=== PATIENT | male | born 1940 | race Two or more races ===

== ENCOUNTER 2019-07-19 14:55 | Inpatient (IN) | payer BC, OTHER ==
[~2019-07-19] VITALS: Ht 175.3 cm; Wt 70.8 kg
[2019-07-19 15:39] LABS: BASOPHILS % (AUTO) 0.5 % (0.0-2.0); EOSINOPHILS # (AUTO) 0.1 K/uL (0.0-0.7); EOSINOPHILS % (AUTO) 0.6 % (0.0-7.0); HEMATOCRIT 48.3 % (31.2-41.9); HEMOGLOBIN 16.2 g/dL (10.9-14.3); LYMPHOCYTES # (AUTO) 1.7 K/uL (20.0-40.0); LYMPHOCYTES % (AUTO) 19.3 % (20.5-51.5); MEAN CORPUSCULAR HEMOGLOBIN 30.7 uug (24.7-32.8); MEAN CORPUSCULAR HGB CONC 34 g/dL (32.3-35.6); MEAN CORPUSCULAR VOLUME 91.6 fL (75.5-95.3); MONOCYTES # (AUTO) 0.7 K/uL (2.0-10.0); MONOCYTES % (AUTO) 7.8 % (0.0-11.0); NEUTROPHILS # (AUTO) 6.2 K/uL (1.8-8.9); NEUTROPHILS % (AUTO) 71.8 % (38.5-71.5); PLATELET COUNT (AUTO) 166 K/uL (179-408); RED BLOOD CELL COUNT(AUTO) 5.28 MIL/uL (3.63-4.92); WHITE BLOOD COUNT (AUTO) 8.6 K/uL (3.8-11.8)
[2019-07-19 15:47] LABS: CARBON DIOXIDE 32 mmol/L (21-32); CHLORIDE 105 mmol/L (98-107); CREATININE 1.3 mg/dL (0.6-1.3); GLUCOSE 113 mg/dL (74-106); POTASSIUM 4.9 mmol/L (3.5-5.1); UREA NITROGEN, BLOOD 30 mg/dL (7-18)
--- NOTE | 2019-07-19 15:47 | NUR ---
PATIENT WAS SEEN BY MD. AWAITING TEST RESULTS. DAUGHTER AT BEDSIDE.
[2019-07-19 15:53] LABS: ALANINE AMINOTRANSFERASE 40 U/L (14-59); ALKALINE PHOSPHATASE 54 U/L (50-136); ASPARTATE AMINOTRANSFERASE 39 U/L (15-37); BILIRUBIN,DIRECT 0.2 mg/dL (0.0-0.2); BILIRUBIN,TOTAL 0.5 mg/dL (0.2-1.0); TOTAL PROTEIN, SERUM 5.4 g/dL (6.4-8.2)
[2019-07-19 15:56] LABS: ETHANOL < 3 MG/DL (0-0)
[2019-07-19 16:17] LABS: *BILIRUBIN,URIN 2+ (NEGATIVE); *BLOOD, URINE 3+ (NEGATIVE); *COLOR,URINE AMBER (YELLOW); *KETONES,URINE 1+ (NEGATIVE); LEUKOCYTE ESTERASE ,URINE NEGATIVE (NEGATIVE); NITRITE, URINE NEGATIVE (NEGATIVE); UGLUCOSE NEGATIVE (NEGATIVE)
[2019-07-19 16:22] LABS: *CLARITY,URINE HAZY (CLEAR)
[2019-07-19 16:23] LABS: RBC,URINE 80-100 /HPF (0-3)
[2019-07-19 16:24] LABS: MUCUS,URINE MANY /LPF (0-FEW); SQUAMOUS EPITHELIAL CELL,UR FEW /HPF (NONE SEEN)
[2019-07-19 16:27] LABS: *AMPHETAMINE, URINE NEGATIVE (NEGATIVE); *BARBITURATE, URINE NEGATIVE (NEGATIVE); *CANNABINOID, URINE NEGATIVE (NEGATIVE); *COCCAINE, URINE NEGATIVE (NEGATIVE); *OPIATE, URINE NEGATIVE (NEGATIVE); *PHENCYCLIDINE SCREEN,URINE NEGATIVE (NEGATIVE)
[2019-07-19] MEDS ORDERED: IV NORMAL SALINE 1000 ML BAG IV ONE (16:45)
--- NOTE | 2019-07-19 17:23 | NUR ---
PATIENT DRANK SOME JUICE. HE IS SITTING UP WITH NO COMPLAINTS. HE HAS BEEN COOPERATIVE.
--- NOTE | 2019-07-19 17:34 | NUR ---
AUGUSTO MAI HERE SPEAKING TO PATIENT AND DAUGHTER.
--- NOTE | 2019-07-19 18:04 | NUR ---
[place]IV[place] [facility] [place]
--- NOTE | 2019-07-19 18:22 | NUR ---
IV removed. Catheter intact and site benign. Pressure and 4x4 gauze applied to site. No bleeding noted.
[2019-07-19] MEDS ORDERED: MAG HYDROX/AL HYDROX/SIMETH 30 ML LIQUID UDC PO PRN (18:45)
[2019-07-19] MEDS ORDERED: MAGNESIUM HYDROXIDE 30 ML LIQUID UDC PO PRN (18:45)
[2019-07-19 20:00] VITALS: BP 132/85
[2019-07-19] MEDS: CLONAZEPAM 0.5 MG TABLET PO SCH (22:05)
--- NOTE | 2019-07-19 23:08 | NUR ---
Patient received wondering the hallways unkempt, confused, alert/oriented x1. Patient showered and was placed in hospital gown.Patient has garbled speech, disoriented, disorganized, agitated, and unpredictable. Patient requires constant redirection, forgetful and wondering in patients room. Patient is unable to recall history or able to give me insight on medication. Bed in lowest position, bed locked, and bed alarm on while in bed.
[2019-07-19] MEDS: TEMAZEPAM 7.5 MG CAPSULE PO PRN (23:37)
[2019-07-20 07:30] VITALS: BP 139/99
[2019-07-20 09:50] LABS: ALANINE AMINOTRANSFERASE 37 U/L (14-59); ALKALINE PHOSPHATASE 47 U/L (50-136); ASPARTATE AMINOTRANSFERASE 37 U/L (15-37); BILIRUBIN,TOTAL 0.5 mg/dL (0.2-1.0); CARBON DIOXIDE 25 mmol/L (21-32); CHLORIDE 108 mmol/L (98-107); CREATININE 0.9 mg/dL (0.6-1.3); GLUCOSE 71 mg/dL (74-106); POTASSIUM 4.2 mmol/L (3.5-5.1); TOTAL PROTEIN, SERUM 4.8 g/dL (6.4-8.2); UREA NITROGEN, BLOOD 23 mg/dL (7-18)
--- NOTE | 2019-07-20 11:01 | NUR ---
Social Work UR Note: general office worker faxed Emily from [place] [facility] ([phone]) and sent patient's psychiatric progress notes and medication list.
--- NOTE | 2019-07-20 11:45 | NUR ---
Social Work Initial Discharge Plan: Patient currently resides at [address], [place] [address]; ([phone]). Per pt's daughter Shea ([phone]) states that he would want his father back to that assisted living. fuel system maintenance worker spoke with Cassie from [facility] ([phone]). fuel system maintenance worker will work with the patient and the MD regarding appropriate discharge planning. fuel system maintenance worker will form a safe and proper discharge.
--- NOTE | 2019-07-20 11:46 | NUR ---
Social Work Family Contact: parks worker spoke with daughter Shea ([phone]) who stated that patient's is the DPOA and will bring documentation. This gag writer gathered collateral from the daughter Shea. Per Shea, she would want her father back to [facility] ([phone]).
[2019-07-20] MEDS ORDERED: LORAZEPAM 2 MG/1 ML VIAL IM ONE (12:15)
[2019-07-20] MEDS ORDERED: OLANZAPINE 10 MG VIAL IM ONE (12:15)
[2019-07-20 13:39] VITALS: BP 107/58
[2019-07-20 14:53] LABS: THYROID STIMULATING HORMONE 1.314 mIU/mL (0.358-3.740)
--- NOTE | 2019-07-20 15:36 | NUR ---
Social Work Firearms Report (DOJ): Carpet Layer Helper completed and submitted a DPJ firearms report for 5150 danger to others and grave disability certification. A copy of report has been placed in patient chart.
[2019-07-20] MEDS ORDERED: Medication Not On Formulary EA (Omega-3 Fatty Acids (Omega-3) 1,000 MG) PO SCH (17:00)
[2019-07-20] MEDS: DIVALPROEX SPRINKLE 125 MG CAP.SPRINK PO SCH (17:15)
[2019-07-20] MEDS: QUETIAPINE FUMARATE 25 MG TABLET PO SCH ×2 (17:15→20:04)
[2019-07-20 20:00] VITALS: BP 100/64
--- NOTE | 2019-07-20 20:00 | NUR ---
Patient received into care sitting up in chair with 1:1 sitter at bedside. Patient has no s/s of acute distress or discomfort noted/observed by nurse. All safety and fall precaution measures are in place. Call light and personal items are within reach at all times. Will continue to monitor and assess.
[2019-07-20] MEDS: OMEGA-3 FATTY ACIDS/FISH OIL CAPSULE PO SCH (20:03)
[2019-07-20] MEDS: MELATONIN 3 MG TABLET PO SCH (20:03)
[2019-07-20] MEDS: ATORVASTATIN 20 MG TABLET PO SCH (20:04)
[2019-07-20] MEDS ORDERED: Medication Not On Formulary EA (Melatonin 5 MG) PO SCH (21:00)
--- NOTE | 2019-07-21 05:47 | NUR ---
Patient slept 4-1/2 hours
--- NOTE | 2019-07-21 06:00 | NUR ---
Patient slept 4-1/2 hours with 1:1 sitter at side this shift and was compliant with all aspects of care. All nursing needs were met promptly and patient is warm, dry, and comfortable. All safety and fall precaution measures remain in place.
--- NOTE | 2019-07-21 07:30 | NUR ---
pt refused to check his vital sign md made aware
[2019-07-21] MEDS: CHOLECALCIFEROL 1,000 UNIT TABLET PO SCH (08:01)
[2019-07-21] MEDS: DIVALPROEX SPRINKLE 125 MG CAP.SPRINK PO SCH ×3 (08:01→15:49)
[2019-07-21] MEDS: QUETIAPINE FUMARATE 25 MG TABLET PO SCH ×2 (08:01→20:36)
[2019-07-21] MEDS: OMEGA-3 FATTY ACIDS/FISH OIL CAPSULE PO SCH ×2 (08:01→20:36)
[2019-07-21] MEDS: VITAMIN B COMPLEX 1 TABLET PO SCH (08:35)
--- NOTE | 2019-07-21 09:54 | NUR ---
Social Work UR Note: workers compensation claims analyst spoke with and faxed Emily piano case maker from [place] ( ) history and physical, consultation, progress note, and medication and labs.
[2019-07-21] MEDS: CLONAZEPAM 0.5 MG TABLET PO SCH ×2 (11:33→20:36)
--- NOTE | 2019-07-21 14:46 | NUR ---
steel construction worker met with patient for brief individual therapy regarding stress management. Patient presented with labile mood. steel construction worker increased awareness surrounding positive reinforcement. Patient did not want to respond to this advertising writer as patient has been combative with staff. steel construction worker was unable to have meaningful conversation. *No group being held due to coronavirus precautions*
[2019-07-21 15:00] VITALS: BP 102/82
[2019-07-21 19:30] VITALS: BP 102/78
--- NOTE | 2019-07-21 19:30 | NUR ---
PATIENT RECEIVED IN [facility] CHAIR. V/S STABLE AND NO SIGNS OF ACUTE DISTRESS. 1:1 SITTER AT BEDSIDE. AGITATED AND RESTLESS, TRYING TO CLIMB OUT OF CHAIR. WILL CONTINUE TO MONITOR.
[2019-07-21] MEDS: ATORVASTATIN 20 MG TABLET PO SCH (20:36)
[2019-07-21] MEDS: MELATONIN 3 MG TABLET PO SCH (20:36)
[2019-07-21] MEDS: TEMAZEPAM 7.5 MG CAPSULE PO PRN (21:51)
--- NOTE | 2019-07-22 08:00 | NUR ---
received pt. resting in bed with sitter at beside for safety. pt. on 5150 ends on 07/21 at 1800. will call MHU to remind them of hold ending. Pt. denies SOB/ difficulty breathing. Pt. denies pain/ discomfort. pt. denies SI/ HI. pt. calm, cooperative with plan of care. safety measures in place. will continue to monitor pt.
[2019-07-22] MEDS: VITAMIN B COMPLEX 1 TABLET PO SCH (08:41)
[2019-07-22] MEDS: DIVALPROEX SPRINKLE 125 MG CAP.SPRINK PO SCH ×3 (08:41→18:17)
[2019-07-22] MEDS: OMEGA-3 FATTY ACIDS/FISH OIL CAPSULE PO SCH ×2 (08:41→21:32)
[2019-07-22] MEDS: CHOLECALCIFEROL 1,000 UNIT TABLET PO SCH (08:41)
[2019-07-22] MEDS: QUETIAPINE FUMARATE 25 MG TABLET PO SCH ×2 (08:41→18:17)
--- NOTE | 2019-07-22 09:00 | NUR ---
called MHU to remind them of hold ending today at 1800. de icer finisher aware and will talk to
[2019-07-22 19:30] VITALS: BP 132/86
[2019-07-22] MEDS: MELATONIN 3 MG TABLET PO SCH (21:32)
[2019-07-22] MEDS: ATORVASTATIN 20 MG TABLET PO SCH (21:32)
[2019-07-22] MEDS: CLONAZEPAM 0.5 MG TABLET PO SCH (22:00)
[2019-07-22] MEDS: TEMAZEPAM 7.5 MG CAPSULE PO PRN (22:00)
[2019-07-23 04:00] VITALS: BP 128/76
--- NOTE | 2019-07-23 04:56 | NUR ---
patient slept intermittently. 1:1 safety for legal status. safety precautions provided. v/s stable and no signs of acute distress.
--- NOTE | 2019-07-23 06:27 | NUR ---
code rosalba called. patient had PEARL GLUE DRIER in the corner trying to hurt her. patient had hand in the air ready to strike PEARL GLUE DRIER. restless and agitated. RN witness. security came up and patient situated back into bed without incident.
[2019-07-23] MEDS: CHOLECALCIFEROL 1,000 UNIT TABLET PO SCH (09:33)
[2019-07-23] MEDS: DIVALPROEX SPRINKLE 125 MG CAP.SPRINK PO SCH ×3 (09:33→17:26)
[2019-07-23] MEDS: QUETIAPINE FUMARATE 25 MG TABLET PO SCH ×4 (09:33→20:32)
[2019-07-23] MEDS: OMEGA-3 FATTY ACIDS/FISH OIL CAPSULE PO SCH ×2 (09:33→20:32)
[2019-07-23] MEDS: VITAMIN B COMPLEX 1 TABLET PO SCH (09:35)
[2019-07-23] MEDS ORDERED: QUETIAPINE FUMARATE 25 MG TABLET PO SCH (13:30)
[2019-07-23 15:00] VITALS: BP 127/77
--- NOTE | 2019-07-23 18:41 | NUR ---
PT. HAS BEEN CALM AND COOPERATIVE THROUGHOUT SHIFT. PT. AGREES TO TAKING MEDICATION. PM MEDICATION FOR DEPAKOTE AND SEROQUEL PT. DID NOT WANT. AFTER TALKING TO PT. AND DISTRACTED WITH DINNER PT. TOOK PM MEDICATION. PT AMBULATED HALLS WITH SITTER.
--- NOTE | 2019-07-23 19:35 | NUR ---
NSG: Received patient sitting up in bed with 1:1 sitter at bedside. patient speaks Welsh and Uzbek. Patient has no s/s of acute distress or discomfort noted. All safety and fall precaution measures are in place. Call light and personal items are within reach at all times. Will continue to monitor and assess.
[2019-07-23] MEDS: ATORVASTATIN 20 MG TABLET PO SCH (20:32)
[2019-07-23] MEDS: MELATONIN 3 MG TABLET PO SCH (20:47)
[2019-07-23 21:15] VITALS: BP 114/87
[2019-07-23] MEDS: TEMAZEPAM 7.5 MG CAPSULE PO PRN (21:15)
[2019-07-23] MEDS: CLONAZEPAM 0.5 MG TABLET PO SCH (22:25)
[2019-07-23] MEDS: ACETAMINOPHEN 325 MG TABLET PO PRN (22:25)
--- NOTE | 2019-07-23 22:32 | NUR ---
nsg: patient spit out klonopin0.25 mg and tylenol 650 mg po. charge nurse aware. continue monitoring for safety.
--- NOTE | 2019-07-24 06:08 | NUR ---
Remain uncooperative with nursing care. Patient slept 3 hours through the night. continue on 1:1 sitter at side for safety. compliant with meds except spit out Klonopin x1. All nursing needs were met promptly and patient kept clean an dry. All safety and fall precaution measures remain in place.
--- NOTE | 2019-07-24 09:30 | NUR ---
Patient awake, alert, sitting on the side of the bed having breakfast. No complain of any pain or discomfort. Due medications administered and tolerated well. 1:1 sitter at bedside. Patient is calm and compliant, denies any suicidal ideations. Safety measures maintained.
[2019-07-24] MEDS: DIVALPROEX SPRINKLE 125 MG CAP.SPRINK PO SCH ×3 (09:38→17:12)
[2019-07-24] MEDS: OMEGA-3 FATTY ACIDS/FISH OIL CAPSULE PO SCH ×2 (09:38→20:45)
[2019-07-24] MEDS: CHOLECALCIFEROL 1,000 UNIT TABLET PO SCH (09:38)
[2019-07-24] MEDS: QUETIAPINE FUMARATE 25 MG TABLET PO SCH ×4 (09:39→20:45)
[2019-07-24] MEDS: VITAMIN B COMPLEX 1 TABLET PO SCH (09:42)
[2019-07-24 11:00] VITALS: BP 137/89
--- NOTE | 2019-07-24 14:16 | NUR ---
Social Work UR Note: clerical warehouse worker spoke with and faxed Emily ed case manager from [facility]( ) patient's progress note, and medication and labs. AUTHORIZATION# [id number]
[2019-07-24 15:35] VITALS: BP 122/82
--- NOTE | 2019-07-24 19:00 | NUR ---
Patient alert, not in any form of distress. He denies any pain or discomfort at this time. Patient remains calm and compliant. Report given to Layo for transfer to MHU. Patient brought down to MHU via wheelchair with assistance of social security benefits interviewer and SALES EXPERT at 1855.
--- NOTE | 2019-07-24 19:11 | NUR ---
Received patient in stable condition from [facility]. Patient accompanied by nursing staff and transported on wheelchair. patient oriented to unit, oriented to his assigned room. Patient is calm, cooperative, and redirectale.
[2019-07-24 20:00] VITALS: BP 120/65
--- NOTE | 2019-07-24 20:30 | NUR ---
RECEIVED PATIENT IN IS ROOM IN BED. HE IS NOTED AWAKE A/O X 1. CONFUSED. NOTED WITH DISORGANIZED THOUGHT, BLUNTED AFFECT, LABILE MOOD, UNABLE TO VERBALIZED FEELING. PATIENT ABLE TO AMBULATE WITH SLOW BUT STEADY GAIT. PT WAS TRANSFERRED EARLIER AT APPROX 1900 FROM [facility]LOOR TO [facility]. SKIN ASSESSMENT DONE. MULTIPLE BRUISES WERE NOTED IN BOTH ARMS AND HANDS. TWO ABRASION WERE NOTED IN HIS LEFT ELBOW AND ONE IN HIS RIGHT HAND POSTERIOR ASPECT. A BRUISE WAS ALSO NOTED IN HIS LEFT LOWER CHEEK. PATIENT DENIED PAIN OR DISCOMFORT. V/S STABLE AT THIS TIME. PATIENT IS REASSURED FOR HIS SAFETY. SAFETY AND FALL PRECAUTION IN PLACE. WILL CONTINUE TO MONITOR.
[2019-07-24] MEDS: ATORVASTATIN 20 MG TABLET PO SCH (20:45)
--- NOTE | 2019-07-24 21:00 | NUR ---
PATIENT NOTED FORGETFUL, WONDERING INTO OTHER PATIENT'S ROOM. POOR HISTORIAN, HE REQUIRES MULTIPLE REDIRECTION AND MONITORING. PATIENT ABLE TO COMPLY WITH MEDICATION REGIMENT. WILL CONTINUE TO MONITOR CLOSELY.
[2019-07-24] MEDS: CLONAZEPAM 0.5 MG TABLET PO SCH (22:03)
[2019-07-24] MEDS ORDERED: MELATONIN 3 MG TABLET ONE (22:27)
[2019-07-24] MEDS: MELATONIN 3 MG TABLET PO SCH (22:46)
[2019-07-24] MEDS: TEMAZEPAM 7.5 MG CAPSULE PO PRN (23:56)
--- NOTE | 2019-07-25 06:41 | NUR ---
patient slept for approx. 1.30 hrs through the night. Patient noted labile, easily irritable, hard to redirect, confused and poor historian. will continue to monitor.
[2019-07-25 07:30] VITALS: BP 148/106
[2019-07-25] MEDS: CHOLECALCIFEROL 1,000 UNIT TABLET PO SCH (09:59)
[2019-07-25] MEDS: QUETIAPINE FUMARATE 25 MG TABLET PO SCH ×3 (09:59→17:18)
[2019-07-25] MEDS: OMEGA-3 FATTY ACIDS/FISH OIL CAPSULE PO SCH ×2 (09:59→21:26)
[2019-07-25] MEDS: DIVALPROEX SPRINKLE 125 MG CAP.SPRINK PO SCH ×3 (09:59→17:18)
[2019-07-25] MEDS: VITAMIN B COMPLEX 1 TABLET PO SCH (10:38)
--- NOTE | 2019-07-25 11:07 | NUR ---
Social Work UR Note: core worker spoke with and faxed Emily manager of case from [facility]( ) patient's progress note, and medication and labs.
--- NOTE | 2019-07-25 15:33 | NUR ---
GPS: patient was in dining room standing by the door, patient quiet , approach the patient because he was covered with the blanket,patient did not respond noted that his eyes are closed, and patient verbalizes that he wants to sit, then suddenly patient having syncope assisted to sit on the chair, patient BP 119/80 p83 T97.5with PO2 100% accucheck 156, called Rapid Response, stat EKG, Stat CXR was done , called and spoke with Dr. Villarreal, he ordered to decreased dose of seroquel to 25mg BID , spoke with Dr. Florencia LAKHANI aware and will make rounds, recheck BP 127/74, patient remains stable with VS and asleep on his chair, will continue monitor patient condition
[2019-07-25 16:57] VITALS: BP 119/80
[2019-07-25] MEDS: RIVAROXABAN 15 MG TABLET PO SCH (17:19)
[2019-07-25 20:00] VITALS: BP 131/67
[2019-07-25] MEDS: MELATONIN 3 MG TABLET PO SCH (20:51)
[2019-07-25] MEDS: TEMAZEPAM 7.5 MG CAPSULE PO PRN (21:26)
[2019-07-25] MEDS: ATORVASTATIN 20 MG TABLET PO SCH (21:26)
[2019-07-26] MEDS: CLONAZEPAM 0.5 MG TABLET PO PRN ×2 (02:41→11:27)
[2019-07-26] MEDS: ACETAMINOPHEN 325 MG TABLET PO PRN (02:41)
[2019-07-26 07:30] VITALS: BP 151/99
[2019-07-26] MEDS: QUETIAPINE FUMARATE 25 MG TABLET PO SCH ×2 (08:49→16:54)
[2019-07-26] MEDS: CHOLECALCIFEROL 1,000 UNIT TABLET PO SCH (08:49)
[2019-07-26] MEDS: DIVALPROEX SPRINKLE 125 MG CAP.SPRINK PO SCH ×4 (08:49→16:54)
[2019-07-26] MEDS: OMEGA-3 FATTY ACIDS/FISH OIL CAPSULE PO SCH ×2 (08:49→20:33)
[2019-07-26] MEDS: VITAMIN B COMPLEX 1 TABLET PO SCH (08:50)
--- NOTE | 2019-07-26 09:10 | NUR ---
Social Work UR Note: community action worker spoke with and faxed Emily case loader operator from [facility]( ) patient's progress note, and medication and labs.
--- NOTE | 2019-07-26 12:02 | NUR ---
Social Work Coordination of Care: machine farmworker contacted patient's assisted living [facility] ([phone]) ([phone]) and discussed that Cassie Admin Coordinator will assess patient today 07/26/2019. This science writer sent patient's H & P psychiatric notes, Lab notes, Medication List, and progress notes.
--- NOTE | 2019-07-26 12:14 | NUR ---
Received patient asleep in his assigned bed. Bed is in low and locked position with bed alarm on. Patient is alert to person only. He requires frequent redirection for easily becoming irritable and agitated with staff and attempting to leave the unit, and reality orientation to date and reason for hospitalization. Patient is confused, disoriented, and anxious and restless. Patient denies SI/HI, denies AH/VH but he is at times suspicious of staff. Patient is provided with education about impulse control and instructed to communicate his needs to staff appropriately, requires frequent education and redirection.
--- NOTE | 2019-07-26 15:21 | NUR ---
Social Work Coordination of Care: cargo worker contacted patient's assisted living [facility] ([phone]) ([phone]) and discussed that Cassie Admin Coordinator will assess tomorrow 07/27/19 at 9AM due to the COVID- they have been busy with meetings.
--- NOTE | 2019-07-26 15:35 | NUR ---
Social Work Coordination of Care: intake worker contacted [facility] ([phone]) ([phone]) with nurse practitioner Jared on August 01, 2019. This contract technical writer also sent patient's clinicals such as H & P psychiatric notes, Medication list, Laboratory, and progress notes.
[2019-07-26 16:08] VITALS: BP 110/79
--- NOTE | 2019-07-26 16:20 | NUR ---
Social Work Family Contact: woolen mill utility worker spoke with daughter Shea ([phone]) who stated that she will pick patient up at 1PM tomorrow 07/27/2019.
[2019-07-26] MEDS: RIVAROXABAN 15 MG TABLET PO SCH (18:43)
[2019-07-26 20:28] VITALS: BP 120/69
[2019-07-26] MEDS: MELATONIN 3 MG TABLET PO SCH (20:33)
[2019-07-26] MEDS: ATORVASTATIN 20 MG TABLET PO SCH (20:33)
--- NOTE | 2019-07-26 21:20 | NUR ---
Received patient in a gerichair. Patient is calm, med compliant, poor insight, re directable and poor judgement. No sign or symptom of respiratory distress, breathing even, unlabored. No indication of pain or discomfort. Will continue to monitor patient for safety.
[2019-07-27] MEDS: CLONAZEPAM 0.5 MG TABLET PO PRN (04:58)
[2019-07-27 07:30] VITALS: BP 132/74
[2019-07-27] MEDS: VITAMIN B COMPLEX 1 TABLET PO SCH (09:13)
[2019-07-27] MEDS: QUETIAPINE FUMARATE 25 MG TABLET PO SCH ×2 (09:13→16:41)
[2019-07-27] MEDS: CHOLECALCIFEROL 1,000 UNIT TABLET PO SCH (09:13)
[2019-07-27] MEDS: DIVALPROEX SPRINKLE 125 MG CAP.SPRINK PO SCH ×4 (09:14→16:41)
[2019-07-27] MEDS: OMEGA-3 FATTY ACIDS/FISH OIL CAPSULE PO SCH ×2 (09:14→20:44)
--- NOTE | 2019-07-27 10:45 | NUR ---
Patients daughter Shea notified that patient is not going to be discharged home today.
--- NOTE | 2019-07-27 13:17 | NUR ---
Social Work UR Note: bag worker spoke with and faxed Emily watch caser from [facility]( ) updated clinicals for further authorization review.
[2019-07-27 16:00] VITALS: BP 123/84
[2019-07-27] MEDS: RIVAROXABAN 15 MG TABLET PO SCH (16:42)
--- NOTE | 2019-07-27 16:48 | NUR ---
Social Work Facility Contact Note: mosaic worker spoke with and faxed Antonia database coordinator from [facility] ( ) for assisted living admissions referral review.
[2019-07-27 20:13] VITALS: BP 129/67
[2019-07-27] MEDS: ATORVASTATIN 20 MG TABLET PO SCH (20:44)
[2019-07-27] MEDS: MELATONIN 3 MG TABLET PO SCH (20:45)
[2019-07-27] MEDS: TEMAZEPAM 7.5 MG CAPSULE PO PRN (23:52)
[2019-07-28] MEDS: CLONAZEPAM 0.5 MG TABLET PO PRN ×2 (02:00→19:42)
--- NOTE | 2019-07-28 07:03 | NUR ---
GPS: Pt. alert but confused with episode of restlessness, agitation and combative with staffs. PM medications given and pt cooperative and took all routine meds. Pt. was noted with increase behavior and unable to fall asleep. PRN was given and noted some effect. Pt was on and off waking up and non cooperative. Pt slept approx 4/hrs, and up in ludin chair at this time.
[2019-07-28 07:30] VITALS: BP 147/84
[2019-07-28] MEDS: DIVALPROEX SPRINKLE 125 MG CAP.SPRINK PO SCH ×3 (09:49→17:59)
[2019-07-28] MEDS: QUETIAPINE FUMARATE 25 MG TABLET PO SCH ×2 (09:50→17:58)
[2019-07-28] MEDS: CHOLECALCIFEROL 1,000 UNIT TABLET PO SCH (09:50)
[2019-07-28] MEDS: OMEGA-3 FATTY ACIDS/FISH OIL CAPSULE PO SCH ×2 (09:50→20:47)
[2019-07-28] MEDS: VITAMIN B COMPLEX 1 TABLET PO SCH (09:51)
--- NOTE | 2019-07-28 12:23 | NUR ---
Social Work UR Note: oyster bed worker spoke with and faxed Emily caseworker protective services from [facility]( ) updated daily clinicals.
--- NOTE | 2019-07-28 13:35 | NUR ---
Social Work Facility Contact Note: brewery cellar worker spoke and followed up with Antonia, help desk coordinator, at [facility] ( ) regarding assisted living admissions referral. Per Antonia, additional information is needed from family to assess facility needs. SW will contact family to retrieve information and provide Antonia the information needed.
--- NOTE | 2019-07-28 13:56 | NUR ---
Social Work Family Contact: SW attempted to speak with pts daughter Shea [[phone]] to gather the information requested by Antonia, civil preparedness coordinatordocument control coordinator agency, but no answer. SW will attempt to contact pts frederick Valdivia at a later time.
[2019-07-28 16:00] VITALS: BP 105/70
[2019-07-28] MEDS: RIVAROXABAN 15 MG TABLET PO SCH (18:00)
[2019-07-28 20:31] VITALS: BP 127/78
[2019-07-28] MEDS: ATORVASTATIN 20 MG TABLET PO SCH (20:47)
[2019-07-28] MEDS: MELATONIN 3 MG TABLET PO SCH (20:47)
--- NOTE | 2019-07-28 21:14 | NUR ---
PATIENT REMAIN CONFUSED, RESTLESS, AND AGITATED DESPITE CONSTANT REDIRECTION. PATIENT IS COMPLAIN WITH MEDICATION AND CARE. PATIENT CONTINUES TO WONDER IN PATIENTS ROOMS REQUIRES REDIRECTION. NO EPISODES OF COMBATIVE BEHAVIOR, WILL CONTINUE TO MONITOR. PATIENT DENIES PAIN AT THIS TIME, WILL CONTINUE TO MONITOR.
[2019-07-28] MEDS: TEMAZEPAM 7.5 MG CAPSULE PO PRN (23:56)
[2019-07-29 07:30] VITALS: BP 144/87
--- NOTE | 2019-07-29 07:30 | NUR ---
sleeping comfortably on bed. no distress noted.
--- NOTE | 2019-07-29 08:00 | NUR ---
legs warm to touch generalized, not specific to with the redness of leg,ankle and foot.
--- NOTE | 2019-07-29 08:00 | NUR ---
awake, tried to get oob by self, assisted to chair for comfort and safety. awaiting breakfast. noted both lower legs + 2 and ankle, foot swollen + 3, redness , warm to touch. patient denies pain. both legs elevated on chair foot rest. md made aware.
--- NOTE | 2019-07-29 08:10 | NUR ---
bp 144/87
[2019-07-29] MEDS: CHOLECALCIFEROL 1,000 UNIT TABLET PO SCH (08:14)
[2019-07-29] MEDS: DIVALPROEX SPRINKLE 125 MG CAP.SPRINK PO SCH ×2 (08:14→16:33)
[2019-07-29] MEDS: QUETIAPINE FUMARATE 25 MG TABLET PO SCH ×2 (08:14→16:33)
[2019-07-29] MEDS: CLONAZEPAM 0.5 MG TABLET PO PRN (08:14)
[2019-07-29] MEDS: OMEGA-3 FATTY ACIDS/FISH OIL CAPSULE PO SCH ×2 (08:14→20:27)
--- NOTE | 2019-07-29 08:14 | NUR ---
agitated trying to get out of chair. unable to talk to patient from shaking the chair. med for agitation.
[2019-07-29] MEDS: VITAMIN B COMPLEX 1 TABLET PO SCH (08:16)
--- NOTE | 2019-07-29 09:23 | NUR ---
patient sleeping comfortable. no agitation for now. made comfortable, will continue to monitor for safety.
--- NOTE | 2019-07-29 10:47 | NUR ---
called and spoke with Attending Physician regarding the bilateral lower extremities redness and swelling , MD will examine the patient, will continue monitor
--- NOTE | 2019-07-29 11:47 | NUR ---
dr barnes in, saw patient foot, ankle. made new order and will carry out.
[2019-07-29] MEDS: FUROSEMIDE 40 MG TABLET PO SCH (13:12)
[2019-07-29] MEDS: PROTEIN SUPPLEMENT (PROSTAT) 30 ML LIQUID PO SCH ×2 (13:38→16:24)
--- NOTE | 2019-07-29 16:30 | NUR ---
bp 108/79
[2019-07-29 16:35] VITALS: BP 108/79
[2019-07-29] MEDS: RIVAROXABAN 15 MG TABLET PO SCH (18:05)
[2019-07-29 20:16] VITALS: BP 134/78
[2019-07-29] MEDS: ATORVASTATIN 20 MG TABLET PO SCH (20:27)
[2019-07-29] MEDS: MELATONIN 3 MG TABLET PO SCH (20:28)
[2019-07-29] MEDS: ACETAMINOPHEN 325 MG TABLET PO PRN (20:33)
--- NOTE | 2019-07-29 23:27 | NUR ---
RECEIVED PATIENT IN A ZAC CHAIR. APPEARS CONFUSED AND KEPT TALKING TO HIMSELF IN VIETNAMESE. NOTED WITH BILATERAL LOWER EXTREMITIES REDNESS AND SWELLING. DENIES PAIN.TOOK HIS MEDICATIONS WITH SOME DIFFICULTY.SLEEPING IN BED AT THIS TIME.VISUAL CHECKS MADE ON HIM.WILL CONTINUE TO MONITOR.
[2019-07-30] MEDS: TEMAZEPAM 7.5 MG CAPSULE PO PRN ×2 (00:54→23:06)
--- NOTE | 2019-07-30 06:26 | NUR ---
SLEPT INTERMITTENTLY FOR 5;45HRS. ATTEMPTED GETTING OUT OF BED A FEW TIMES.REDIRECTED.
[2019-07-30 07:30] VITALS: BP 152/63
[2019-07-30] MEDS: PROTEIN SUPPLEMENT (PROSTAT) 30 ML LIQUID PO SCH ×3 (08:30→17:24)
[2019-07-30] MEDS: QUETIAPINE FUMARATE 25 MG TABLET PO SCH ×2 (08:30→17:23)
[2019-07-30] MEDS: VITAMIN B COMPLEX 1 TABLET PO SCH (08:30)
[2019-07-30] MEDS: DIVALPROEX SPRINKLE 125 MG CAP.SPRINK PO SCH ×2 (08:32→17:24)
[2019-07-30] MEDS: OMEGA-3 FATTY ACIDS/FISH OIL CAPSULE PO SCH ×2 (08:34→20:30)
[2019-07-30] MEDS: CHOLECALCIFEROL 1,000 UNIT TABLET PO SCH (08:35)
[2019-07-30] MEDS: FUROSEMIDE 40 MG TABLET PO SCH (10:07)
[2019-07-30] MEDS: CLONAZEPAM 0.5 MG TABLET PO PRN ×2 (14:02→19:45)
[2019-07-30] MEDS ORDERED: OLANZAPINE 10 MG VIAL IM ONE (14:15)
[2019-07-30] MEDS ORDERED: LORAZEPAM 2 MG/1 ML VIAL IM ONE (14:15)
--- NOTE | 2019-07-30 14:25 | NUR ---
patient got agitated and aggressive refused PO PRN medication, received an order of ativan 1 mg IM x1 and zyprexa 5mg IM x 1. Administered as ordered.
[2019-07-30 17:04] VITALS: BP 136/59
[2019-07-30] MEDS: RIVAROXABAN 15 MG TABLET PO SCH (17:26)
[2019-07-30 20:00] VITALS: BP 108/59
[2019-07-30] MEDS: ATORVASTATIN 20 MG TABLET PO SCH (20:29)
[2019-07-30] MEDS: MELATONIN 3 MG TABLET PO SCH (20:30)
--- NOTE | 2019-07-31 06:35 | NUR ---
Received Pt sitting in the brooke chair, A+Ox1 to himself only, remains confused, disoriented, and disorganized. Compliant with crushed medications in pudding. Resistant and aggressive when care and ADLs are rendered, requires multiple staff to provide care. Anxious and restless, Klonopin 0.25mg administered with minimal effect. Restoril 7.5mg subsequently administered with little effect. Warm shower gihailee, Pt now sleeping in bed. VS stable, no c/o or evidence of pain.
[2019-07-31 07:30] VITALS: BP 108/74
[2019-07-31] MEDS: CLONAZEPAM 0.5 MG TABLET PO PRN ×2 (07:37→19:35)
[2019-07-31] MEDS: PROTEIN SUPPLEMENT (PROSTAT) 30 ML LIQUID PO SCH ×3 (08:00→16:56)
[2019-07-31] MEDS: QUETIAPINE FUMARATE 25 MG TABLET PO SCH ×3 (08:00→16:56)
[2019-07-31] MEDS: CHOLECALCIFEROL 1,000 UNIT TABLET PO SCH (08:01)
[2019-07-31] MEDS: OMEGA-3 FATTY ACIDS/FISH OIL CAPSULE PO SCH ×2 (08:01→20:18)
[2019-07-31] MEDS: DIVALPROEX SPRINKLE 125 MG CAP.SPRINK PO SCH ×3 (08:01→16:56)
[2019-07-31] MEDS: FUROSEMIDE 40 MG TABLET PO SCH (08:02)
[2019-07-31] MEDS: VITAMIN B COMPLEX 1 TABLET PO SCH (08:02)
--- NOTE | 2019-07-31 08:52 | NUR ---
Received patient awake, alert and oriented to person only in his assigned bed. Bed is in low and locked position with bed alarm on. Patient is resistive to care, anxious and restless, and becomes irritable and angry with staff hortensia staff attempts to help patient. Patient is labile in mood and requires frequent reality orientation and redirection from staff. Patient has poor impulse control. Patient is unable to maintain linear and logical conversation with staff. patient is adherent with medication with prompting, without adverse reaction. Patient requires assistance with self care, feeding, and ambulation. Patient provided with education about impulse control and communicating his needs to staff, teaching is ineffective at this time. Will continue to provide for patient safety.
[2019-07-31 15:12] VITALS: BP 116/74
[2019-07-31] MEDS: RIVAROXABAN 15 MG TABLET PO SCH (17:42)
[2019-07-31] MEDS: VALPROIC ACID 250 MG/5 ML LIQUID UDC PO SCH (18:00)
[2019-07-31] MEDS: ATORVASTATIN 20 MG TABLET PO SCH (20:18)
[2019-07-31] MEDS: MELATONIN 3 MG TABLET PO SCH (20:19)
[2019-07-31 20:36] VITALS: BP 114/74
[2019-08-01 07:30] VITALS: BP 115/83
[2019-08-01 07:53] LABS: CREATININE 0.8 mg/dL (0.6-1.3); POTASSIUM 3.2 mmol/L (3.5-5.1)
[2019-08-01] MEDS: PROTEIN SUPPLEMENT (PROSTAT) 30 ML LIQUID PO SCH ×3 (08:22→16:49)
[2019-08-01] MEDS: QUETIAPINE FUMARATE 25 MG TABLET PO SCH ×2 (08:32→16:49)
[2019-08-01] MEDS: VALPROIC ACID 250 MG/5 ML LIQUID UDC PO SCH ×3 (08:32→16:49)
[2019-08-01] MEDS: CLONAZEPAM 0.5 MG TABLET PO PRN ×2 (08:32→14:50)
[2019-08-01] MEDS: VITAMIN B COMPLEX 1 TABLET PO SCH (08:32)
[2019-08-01] MEDS: OMEGA-3 FATTY ACIDS/FISH OIL CAPSULE PO SCH ×2 (08:33→20:14)
[2019-08-01] MEDS: CHOLECALCIFEROL 1,000 UNIT TABLET PO SCH (08:33)
[2019-08-01] MEDS ORDERED: POTASSIUM CHLORIDE 20 MEQ TAB.PRT.SR PO ONE (08:45)
[2019-08-01] MEDS: FUROSEMIDE 40 MG TABLET PO SCH (09:16)
--- NOTE | 2019-08-01 11:42 | NUR ---
Social Work UR Note: older worker specialist spoke with and faxed Emily case operator from [facility]( ) updated daily clinicals.
--- NOTE | 2019-08-01 15:16 | NUR ---
Social Work Coordination of Care: make up worker spoke to Admin Kati ([phone]) and faxed ([phone]) H & P psychiatric notes and progress notes. Per Kati, she will visit patient on August 02, 2019 at 9AM.
[2019-08-01 16:01] VITALS: BP 120/88
[2019-08-01] MEDS: RIVAROXABAN 15 MG TABLET PO SCH (17:28)
[2019-08-01] MEDS: ATORVASTATIN 20 MG TABLET PO SCH (20:15)
[2019-08-01] MEDS: MELATONIN 3 MG TABLET PO SCH (20:15)
[2019-08-01] MEDS: OLANZAPINE ZYDIS 5 MG TAB.RAPDIS PO SCH (20:16)
[2019-08-01 20:23] VITALS: BP 146/98
--- NOTE | 2019-08-01 21:57 | NUR ---
GPS:/ 2100: Pt. received asleep in bed, breathing even and arose to with light touch
--- NOTE | 2019-08-01 22:03 | NUR ---
Pt awake and was agitated, confuse and not wanting to stay in bed. Transfer to brooke-chair. Routine medications given and was cooperative. Pt. was redirected and prevent from injury while sitting up. Monitor both lower extremities per edema, continue with current Lasix medication and noted some improvement. Pt was retransfer to bed elevate legs, will monitor q15/min.
[2019-08-02] MEDS: TEMAZEPAM 7.5 MG CAPSULE PO PRN (01:23)
--- NOTE | 2019-08-02 02:17 | NUR ---
Pt continue with increase agitation and restlessness. Unable to fall asleep or stay in bed/brooke-chair. PRN Restoril was given as order. Monitor and noted some improvement and clam resting in bed.
--- NOTE | 2019-08-02 06:22 | NUR ---
Pt. slept up to 8hrs during shift. Pt Restoril was effective. awake and took a shower. left up in ludin-chair at hallway.
[2019-08-02] MEDS: VITAMIN B COMPLEX 1 TABLET PO SCH (08:37)
[2019-08-02] MEDS: FUROSEMIDE 40 MG TABLET PO SCH (08:38)
[2019-08-02] MEDS: OLANZAPINE ZYDIS 5 MG TAB.RAPDIS PO SCH (08:38)
[2019-08-02] MEDS: OMEGA-3 FATTY ACIDS/FISH OIL CAPSULE PO SCH ×2 (08:38→20:24)
[2019-08-02] MEDS: CHOLECALCIFEROL 1,000 UNIT TABLET PO SCH (08:38)
[2019-08-02] MEDS: VALPROIC ACID 250 MG/5 ML LIQUID UDC PO SCH ×3 (08:38→17:06)
[2019-08-02] MEDS: PROTEIN SUPPLEMENT (PROSTAT) 30 ML LIQUID PO SCH ×3 (08:54→17:10)
--- NOTE | 2019-08-02 11:20 | NUR ---
Received patient in chair this am. Refusing to have VS checked, Refusing to eat and very difficult to admin medications too. Spitting them out and being very noncompliant. Sleeping most of the am and getting very angry and irritable when woken up to be checked on. Continuing to encourage compliance with medical treatment and medications. No acute distress or issues at this time.
--- NOTE | 2019-08-02 11:52 | NUR ---
Social Work UR Note: textile worker spoke with and faxed Emily case briefer from [facility]( ) updated daily clinicals.
--- NOTE | 2019-08-02 12:13 | NUR ---
Social Work Family Contact: painting worker spoke with patient's daughter Shea ([phone]) and discussed patient's discharge plan. Per Shea, she has been in contact with Kati from [facility] ([phone]) who stated to Shea that they are unable to take care of patient due to behavior issues. This newspaper writer addressed that Kati is suppose to come assess patient today 08/01 and will follow-up with Shea.
--- NOTE | 2019-08-02 14:30 | NUR ---
Social Work Family Contact: railroad yard worker spoke with patient's daughter Shea ([phone]) who stated that she will take her father home upon discharge. Per Shea, she requested to speak to Dr. Guzman. This technical proposal writer contacted Dr. Guzman to contact the daughter.
[2019-08-02 16:00] VITALS: BP 125/80
[2019-08-02] MEDS: RIVAROXABAN 15 MG TABLET PO SCH (17:09)
[2019-08-02] MEDS: MELATONIN 3 MG TABLET PO SCH (20:24)
[2019-08-02] MEDS: ATORVASTATIN 20 MG TABLET PO SCH (20:24)
[2019-08-02 20:57] VITALS: BP 111/88
[2019-08-02] MEDS ORDERED: OLANZAPINE ZYDIS 5 MG TAB.RAPDIS PO SCH (21:00)
--- NOTE | 2019-08-02 23:33 | NUR ---
PATIENT RECEIVED IN ZAC CHAIR AWAKE ALERT/ORIENTED X1 REMAINS CONFUSED, DISORIENTED, AND DISORGANIZED. PATIENT COMPLAINT WITH MEDICATION. NO APPARENT DISTRESS, WILL CONTINUE TO MONITOR.
[2019-08-03 07:30] VITALS: BP 142/71
[2019-08-03] MEDS: OMEGA-3 FATTY ACIDS/FISH OIL CAPSULE PO SCH (08:26)
[2019-08-03] MEDS: PROTEIN SUPPLEMENT (PROSTAT) 30 ML LIQUID PO SCH ×2 (08:26→12:37)
[2019-08-03] MEDS: CHOLECALCIFEROL 1,000 UNIT TABLET PO SCH (08:26)
[2019-08-03] MEDS: VITAMIN B COMPLEX 1 TABLET PO SCH (08:26)
[2019-08-03] MEDS: FUROSEMIDE 40 MG TABLET PO SCH (08:26)
[2019-08-03] MEDS: VALPROIC ACID 250 MG/5 ML LIQUID UDC PO SCH ×2 (08:26→12:38)
[2019-08-03] MEDS: CLONAZEPAM 0.5 MG TABLET PO PRN (08:30)
--- NOTE | 2019-08-03 10:36 | NUR ---
Social Work Firearms Report: Tube Bending Machine Operator completed and submitted a DPJ firearms report for 5250 grave disability certification. A copy of report has been placed in patient chart.
--- NOTE | 2019-08-03 11:52 | NUR ---
Social Work Discharge Note: Patient will be discharged home to [address] [place] [address], [address]; ([phone]). Patients daughter Shea ([phone]) will pick patient up at 1PM. Patients daughter Shea ([phone]) is aware and agreeable to patients discharge. Upon discharge, patient appear to be calm, cooperative and happy to be going home. Patient denies suicidal and homicidal ideation. Patient will follow up with Dr. Lion (supervisor roving) on August 08 at 10AM at [address] [facility] [address] [address]; ([phone]) and has an appointment [place] [address]; ([phone]) on August 09 at 11:30AM. Per patients insurance policy issue clerk Emily, she arranged home health services through [facility]; ([phone]) and a nurse will evaluate patient on 08/04/2019. Per Emily, she will contact patients daughter Shea ([phone]) who will follow up with patients resources. Patient presented with euthymic mood and congruent affect.
--- NOTE | 2019-08-03 14:00 | NUR ---
received discharge order to home via private car with daughter Shea. Discharge instruction given with medication prescription with education of risk and benefits of medications. no acute distress noted, no SOB noted at this time. belonging accounted for and signed. questions and concern addressed. escorted patient via wheelchair out the facility.
== END 2019-08-03 14:00 | disposition home or self-care (01) | DRG 885 ==
LOC: ER 14:55 → GPS 18:09 → EDSEX 18:09 → GPSOV3 07-20 13:00 → GPS 07-24 18:23
PROVIDERS: ADMIT Psychiatry & Neurology Psychiatry; ATTEND Internal Medicine
DX: F29 Unspecified psychosis not due to a substance or known physiological condition (principal); E43 Unspecified severe protein-calorie malnutrition; F23 Brief psychotic disorder; F03.91 Unspecified dementia, unspecified severity, with behavioral disturbance; D68.69 Other thrombophilia; E78.5 Hyperlipidemia, unspecified; Z88.2 Allergy status to sulfonamides; I70.0 Atherosclerosis of aorta; Z74.09 Other reduced mobility; I48.91 Unspecified atrial fibrillation; Z87.441 Personal history of nephrotic syndrome; E87.6 Hypokalemia; F39 Unspecified mood [affective] disorder; M19.90 Unspecified osteoarthritis, unspecified site; Z68.23 Body mass index [BMI] 23.0-23.9, adult
CPT/HCPCS: 36415; 71045; 80164; 80307; 84443; 85025; 85730; 87086; 93005; 93307; G0480; J2060; J2358; J7030